=== PATIENT | female | born 1960 | race Caucasian/White ===

== ENCOUNTER 2022-07-09 21:06 | Emergency (ER) | payer OTHER ==
[2022-07-09] MEDS ORDERED: RT-ALBUTEROL SULF 2.5 MG/3 ML PRE-MIX VIAL INH ONE (21:15)
--- NOTE | 2022-07-09 22:01 | ED Respiratory ---
General Chief Complaint: Respiratory Problems Stated Complaint: ASTHMA ATTACK Nursing Triage Note: PT ARRIVAL TO ER VIA WHEELCHAIR WITH PANICK ATTACK. IS SCREAMING CANT BREATH. PT HAS KNOWN ASTHMA BUT IS OUT OF ALBUTEROL INHALER. RR 36 AT THIS TIME. SATS WITHIN NORMAL PARAMETERS. Source: patient Exam Limitations: no limitations History of Present Illness Date Seen by Provider: Jul 09, 2022 Time Seen by Provider: 22:03 Allergies and Home Medications Allergies Coded Allergies: morphine (Verified Allergy, Unknown, 07/09/22) Uncoded Allergies: NSAID (Allergy, Unknown, 07/09/22) Past Mcpxmhc-Tzqakt-Rmamek Hx Patient Social History Tobacco Use?: No Use of E-Cig and/or Vaping dev: No Substance use?: No Alcohol Use?: No Pt feels they are or have been: No Immunizations Up To Date Influenza Vaccine Up-to-Date: No; Not Current Physical Exam Vital Signs - First Documented 07/09/22 21:08 Temp 36.9 Pulse 120 Resp 36 B/P (MAP) 151/91 (111) Pulse Ox 96 O2 Delivery Room Air Capillary Refill : Less Than 3 Seconds Height: '" Weight: lbs. oz. kg; BMI Method: Progress/Results/Core Measures Suspected Sepsis SIRS Temperature: Pulse: 120 Respiratory Rate: 36 Laboratory Tests 07/09/22 21:11: White Blood Count 13.9H Blood Pressure 151 /91 Mean: 111 Laboratory Tests 07/09/22 21:11: Creatinine 0.99, Platelet Count 353, Total Bilirubin 0.5 Results/Orders Lab Results Laboratory Tests Test 07/09/22 21:11 Range/Units White Blood Count 13.9 H 4.3-11.0 10^3/uL Red Blood Count 4.80 3.80-5.11 10^6/uL Hemoglobin 15.0 11.5-16.0 g/dL Hematocrit 44 35-52 % Mean Corpuscular Volume 92 80-99 fL Mean Corpuscular Hemoglobin 31 25-34 pg Mean Corpuscular Hemoglobin Concent 34 32-36 g/dL Red Cell Distribution Width 11.7 10.0-14.5 % Platelet Count 353 130-400 10^3/uL Mean Platelet Volume 11.7 9.0-12.2 fL Immature Granulocyte % (Auto) 0 % Neutrophils (%) (Auto) 52 42-75 % Lymphocytes (%) (Auto) 38 12-44 % Monocytes (%) (Auto) 8 0-12 % Eosinophils (%) (Auto) 2 0-10 % Basophils (%) (Auto) 0 0-10 % Neutrophils # (Auto) 7.2 1.8-7.8 10^3/uL Lymphocytes # (Auto) 5.3 H 1.0-4.0 10^3/uL Monocytes # (Auto) 1.1 H 0.0-1.0 10^3/uL Eosinophils # (Auto) 0.2 0.0-0.3 10^3/uL Basophils # (Auto) 0.1 0.0-0.1 10^3/uL Immature Granulocyte # (Auto) 0.0 0.0-0.1 10^3/uL Sodium Level 138 135-145 MMOL/L Potassium Level 3.7 3.6-5.0 MMOL/L Chloride Level 101 98-107 MMOL/L Carbon Dioxide Level 18 L 21-32 MMOL/L Anion Gap 19 H 5-14 MMOL/L Blood Urea Nitrogen 16 7-18 MG/DL Creatinine 0.99 0.60-1.30 MG/DL Estimat Glomerular Filtration Rate 64 BUN/Creatinine Ratio 16 Glucose Level 96 70-105 MG/DL Calcium Level 10.7 H 8.5-10.1 MG/DL Corrected Calcium 8.5-10.1 MG/DL Total Bilirubin 0.5 0.1-1.0 MG/DL Aspartate Amino Transf (AST/SGOT) 32 5-34 U/L Alanine Aminotransferase (ALT/SGPT) 20 0-55 U/L Alkaline Phosphatase 84 40-136 U/L Troponin I < 0.028 <0.028 NG/ML Total Protein 8.5 H 6.4-8.2 GM/DL Albumin 4.8 H 3.2-4.5 GM/DL My Orders Orders - [employer] Albuterol Pre-Mix Nebs (Rt) (Proventil (07/09/22 21:15) Svn Small Volume Nebulizer (07/09/22 21:09) Ekg Tracing (07/09/22 22:02) Troponin I Dougherty (07/09/22 22:02) Cbc With Automated Diff (07/09/22 22:02) Comprehensive Metabolic Panel (07/09/22 22:02) Chest 1 View, Ap/Pa Only (07/09/22 22:02) Rx-Albuterol Inhaler (Rx-Ventolin Hfa In (07/09/22 22:48) Medications Given in ED Current Medications Medications Dose Ordered Sig/Nicole Route Start Time Stop Time Status Last Admin Dose Admin Albuterol Sulfate 2.5 mg ONCE ONCE INH 07/09/22 21:15 07/09/22 21:18 DC 07/09/22 21:11 2.5 MG Vital Signs/I&O 07/09/22 21:08 Temp 36.9 Pulse 120 Resp 36 B/P (MAP) 151/91 (111) Pulse Ox 96 O2 Delivery Room Air Capillary Refill : Less Than 3 Seconds Blood Pressure Mean: 111 Departure Impression Primary Impression: Asthma attack Additional Impression: Anxiety Disposition: 01 HOME, SELF-CARE Condition: Improved Departure-Patient Inst. Decision time for Depature: 21:48 Referrals: NO,LOCAL PHYSICIAN (PCP/Family) Primary Care Physician Patient Instructions: Asthma, Adult ED Add. Discharge Instructions: Plan: 1. Establish with primary care provider of choice. 2. Use Albuterol inhaler with spacer 2 puffs every 4 hours as needed shortness of breath and wheezing. 3. Return for any new, concerning, or worsening symptoms. All discharge instructions reviewed with patient and/or family. Voiced understanding. Scripts Albuterol Sulfate (PROAIR HFA) 1 Puff Puff 2 PUFF IH Q4H for 30 Days, #1 EA 2 Refills 1 PUFF = 90 MCG Prov: NEETU [employer]ER 07/09/22 NEETU PIM[employer]ER Jul 09, 2022 22:01
[2022-07-09 22:10] LABS: BASOPHILS # (AUTO) 0.1 10^3/uL (0.0-0.1); BASOPHILS % (AUTO) 0 % (0-10); EOSINOPHILS # (AUTO) 0.2 10^3/uL (0.0-0.3); EOSINOPHILS % (AUTO) 2 % (0-10); HEMATOCRIT 44 % (35-52); LYMPHOCYTES # (AUTO) 5.3 10^3/uL (1.0-4.0); LYMPHOCYTES % (AUTO) 38 % (12-44); MEAN CORPUSCULAR HEMOGLOBIN 31 pg (25-34); MEAN CORPUSCULAR HGB CONC 34 g/dL (32-36); MEAN CORPUSCULAR VOLUME 92 fL (80-99); MEAN PLATELET VOLUME 11.7 fL (9.0-12.2); MONOCYTES # (AUTO) 1.1 10^3/uL (0.0-1.0); MONOCYTES % (AUTO) 8 % (0-12); NEUTROPHILS # (AUTO) 7.2 10^3/uL (1.8-7.8); NEUTROPHILS % (AUTO) 52 % (42-75); PLATELET COUNT 353 10^3/uL (130-400); WHITE BLOOD COUNT 13.9 10^3/uL (4.3-11.0)
[2022-07-09 22:17] LABS: ALBUMIN 4.8 GM/DL (3.2-4.5); CHLORIDE 101 MMOL/L (98-107); POTASSIUM 3.7 MMOL/L (3.6-5.0); SODIUM 138 MMOL/L (135-145)
[2022-07-09 22:19] LABS: CALCIUM 10.7 MG/DL (8.5-10.1)
[2022-07-09 22:20] LABS: GLUCOSE 96 MG/DL (70-105); TOTAL PROTEIN 8.5 GM/DL (6.4-8.2)
[2022-07-09 22:21] LABS: CARBON DIOXIDE 18 MMOL/L (21-32)
[2022-07-09 22:22] LABS: BILIRUBIN,TOTAL 0.5 MG/DL (0.1-1.0)
[2022-07-09 22:23] LABS: ALKALINE PHOSPHATASE 84 U/L (40-136); CREATININE SERUM 0.99 MG/DL (0.60-1.30); GFR ESTIMATED 64
[2022-07-09 22:24] LABS: BUN/CREATININE RATIO 16
[2022-07-09 22:26] LABS: ALANINE AMINOTRANSFERASE 20 U/L (0-55)
--- NOTE | 2022-07-09 22:46 | Diagnostic Imaging Report ---
CLINICAL INDICATION: Patient with shortness of air. EXAM: Portable chest x-ray upright view. COMPARISON: None. FINDINGS: Lungs/pleura: Lungs are clear. There is no pneumothorax. There is no pleural effusion. Mediastinum: There is a moderate to large sized hiatal hernia with air-fluid levels seen. Pulmonary vasculature: Unremarkable. Heart: Cardiac silhouette is upper limits of normal. Bones/extrathoracic soft tissue: Unremarkable. IMPRESSION: 1: There is no radiographic evidence of acute cardiopulmonary process. 2: There is moderate to large sized hiatal hernia. Dictated by: Dictated on workstation # [id number]
[2022-07-09] MEDS ORDERED: RX-ALBUTEROL INHALER 8.5 GM HFA (PROAIR) IH STA (22:48)
[2022-07-09] MEDS ORDERED: RT-ALBUINH IH (22:56)
[2022-07-09 23:03] VITALS: BP 139/73
[2022-07-09] MEDS ORDERED: ACETAMINOPHEN 500 MG TAB (TYLENOL) PO ONE (23:15)
== END 2022-07-09 23:45 | disposition home or self-care (01) ==
LOC: EDBD 21:09 → ER 21:09
DX: J45.909 Unspecified asthma, uncomplicated (principal); F41.9 Anxiety disorder, unspecified; Z28.310 Unvaccinated for COVID-19
CPT/HCPCS: 36415; 71045; 80053; 84484; 85025; 93005